=== PATIENT | male | born 1975 | race Caucasian/White ===

== ENCOUNTER 2022-04-03 17:06 | Inpatient (IN) | payer OTHER ==
[2022-04-03 21:18] VITALS: BMI 52.4
[2022-04-03] MEDS ORDERED: Bisacodyl 5 MG TAB PO PRN (23:33)
[2022-04-03] MEDS ORDERED: Guaifenesin DM 100-10/5 ML UDCUP PO PRN (23:33)
[2022-04-03] MEDS ORDERED: Bisacodyl 10 MG SUPP PR PRN (23:33)
[2022-04-03] MEDS ORDERED: Senokot S 8.6-50 MG TAB PO PRN (23:33)
[2022-04-04] MEDS ORDERED: Acetaminophen 325 MG TAB PO PRN (07:31)
[2022-04-04] MEDS: Thiamine 100 MG TAB PO SCH (07:55)
[2022-04-04] MEDS: Rifaximin 550 MG TAB PO SCH ×2 (07:55→20:16)
[2022-04-04] MEDS: Folic Acid 1 MG TAB PO SCH (07:56)
[2022-04-04] MEDS: Spironolactone 100 MG TAB PO SCH (07:56)
[2022-04-04] MEDS: Multivit, Therapeutic 1 TAB PO SCH (07:57)
[2022-04-04] MEDS: Aripiprazole 10 MG TAB PO SCH (07:57)
[2022-04-04 08:33] LABS: #Basophils 0.1 thou/uL (0.0-0.2); #Eosinphils 0.2 thou/uL (0.0-0.7); #Lymphocytes 0.7 thou/uL (1.20-3.40); #Monocytes 0.8 thou/uL (0.11-0.59); #Neutrophils 3.8 thou/uL (1.40-6.50); %Basophils 1.1 % (0.0-1.0); %Eosinophils 4.4 % (0.0-10.0); %Lymphocytes 11.9 % (21.0-51.0); %Monocytes 13.9 % (0.0-10.0); %Neutrophils 68.8 % (42.0-75.0); Mean Corpuscular HGB CONC 31.4 g/dL (32.0-36.0); Mean Corpuscular Hemoglobin 26.2 pg (27.0-31.0); Mean Corpuscular Volume 83.6 fl (78.0-98.0); Mean Platelet Volume 7.6 fL (7.4-10.4); Platelet Count 270 10x3/uL (130-400); RBC Distribution Width 16.2 % (11.5-14.5); Red Blood Cell (RBC) Count 4.59 mill/uL (4.70-6.10); White Blood Cell (WBC) Count 5.5 10x3/uL (4.8-10.8)
[2022-04-04 08:45] LABS: INR-International Normal Ratio 1.1; Prothrombin Time 14.8 sec (12.0-14.7)
[2022-04-04 08:55] LABS: ALT (SGPT) 28 U/L (8-55); AST (SGOT) 42 U/L (5-34); Albumin 3.5 g/dL (3.5-5.0); Alkaline Phosphatase 100 U/L (40-110); Anion Gap 13 mmol/L (10-20); BUN (Urea Nitrogen) 22 mg/dL (8.9-20.6); Bilirubin, Total 0.7 mg/dL (0.2-1.2); Calc. Creatinine Clearance 159 mL/min (70-130); Calcium 8.5 mg/dL (7.8-10.44); Carbon Dioxide 24 mmol/L (22-29); Chloride 105 mmol/L (98-107); Estimated GFR 69; Globulin 3.3 g/dL (2.4-3.5); Glucose 125 mg/dL (70-105); Potassium 4.6 mmol/L (3.5-5.1); Protein, Total 6.8 g/dL (6.0-8.3); Sodium 137 mmol/L (136-145)
[2022-04-04] MEDS: Morphine 4 MG/ML VIAL SLOW IVP PRN ×2 (10:46→20:15)
[2022-04-04] MEDS: Bumetanide 1 MG TAB PO SCH ×2 (11:50→17:14)
[2022-04-04] MEDS ORDERED: Albuterol Sulfate 2.5 mg/3 ml Neb NEB PRN (17:06)
[2022-04-04] MEDS: rOPINIRole HCl 1 MG TAB PO SCH (20:16)
[2022-04-05] MEDS: Morphine 4 MG/ML VIAL SLOW IVP PRN ×4 (00:11→20:09)
[2022-04-05 07:48] LABS: Phosphorus 4.4 mg/dL (2.3-4.7)
[2022-04-05 07:52] LABS: ALT (SGPT) 21 U/L (8-55); AST (SGOT) 29 U/L (5-34); Albumin 3.1 g/dL (3.5-5.0); Alkaline Phosphatase 92 U/L (40-110); Anion Gap 9 mmol/L (10-20); BUN (Urea Nitrogen) 20 mg/dL (8.9-20.6); Bilirubin, Direct 0.3 mg/dL (0.1-0.3); Bilirubin, Total 0.7 mg/dL (0.2-1.2); Calc. Creatinine Clearance 186 mL/min (70-130); Calcium 8.1 mg/dL (7.8-10.44); Carbon Dioxide 27 mmol/L (22-29); Chloride 102 mmol/L (98-107); Estimated GFR 83; Glucose 93 mg/dL (70-105); Magnesium 1.9 mg/dL (1.6-2.6); Potassium 3.8 mmol/L (3.5-5.1); Sodium 134 mmol/L (136-145)
[2022-04-05] MEDS ORDERED: Lidocaine 2% PF 5 ML VIAL ONE (08:41)
[2022-04-05] MEDS ORDERED: Sodium Bicarbonate 2.5 MEQ/5 ML VIAL ONE (08:41)
[2022-04-05] MEDS: Spironolactone 100 MG TAB PO SCH (10:19)
[2022-04-05] MEDS: Thiamine 100 MG TAB PO SCH (10:20)
[2022-04-05] MEDS: Folic Acid 1 MG TAB PO SCH (10:21)
[2022-04-05] MEDS: Multivit, Therapeutic 1 TAB PO SCH (10:21)
[2022-04-05] MEDS: Aripiprazole 10 MG TAB PO SCH (10:21)
[2022-04-05] MEDS: Rifaximin 550 MG TAB PO SCH ×2 (10:21→20:11)
[2022-04-05 11:16] LABS: BF Color Yellow; Body Fluid Source Paracentesis Fluid; Clarity Hazy (Clear); Tube # EDTA
[2022-04-05 11:29] LABS: RBC Count-Automated (BF) 1101 /cu.mm; WBC/Nucleated-Auto (BF) 270 /cu.mm
[2022-04-05 12:28] LABS: BF Segmented Neutrophils 4 %; Cell Count Non Hematic 61 %; Lymphocytes 35 %
[2022-04-05] MEDS ORDERED: Bumetanide 1 MG/4 ML VIAL IVP SCH (12:30)
[2022-04-05] MEDS: rOPINIRole HCl 1 MG TAB PO SCH (20:11)
[2022-04-05] MEDS: Enoxaparin Sodium 40 MG/0.4 ML SYRINGE SC SCH (20:11)
[2022-04-06] MEDS: Morphine 4 MG/ML VIAL SLOW IVP PRN ×4 (00:22→21:22)
[2022-04-06] MEDS: Bumetanide 1 MG/4 ML VIAL IVP SCH ×2 (05:26→14:22)
[2022-04-06 07:20] LABS: Anion Gap 10 mmol/L (10-20); BUN (Urea Nitrogen) 18 mg/dL (8.9-20.6); Calc. Creatinine Clearance 199 mL/min (70-130); Calcium 8.3 mg/dL (7.8-10.44); Carbon Dioxide 25 mmol/L (22-29); Chloride 104 mmol/L (98-107); Estimated GFR 90; Glucose 101 mg/dL (70-105); Iron 34 ug/dL (65-175); Iron Binding Capacity, Total 300 mcg/dL (261-462); Potassium 4.3 mmol/L (3.5-5.1); Sodium 135 mmol/L (136-145)
[2022-04-06 07:26] LABS: Hemoglobin 11.3 g/dL (14.0-18.0); Mean Corpuscular HGB CONC 32.8 g/dL (32.0-36.0); Mean Corpuscular Volume 82.3 fl (78.0-98.0); Mean Platelet Volume 8.1 fL (7.4-10.4); Platelet Count 221 10x3/uL (130-400); RBC Distribution Width 16.5 % (11.5-14.5); Red Blood Cell (RBC) Count 4.17 mill/uL (4.70-6.10); White Blood Cell (WBC) Count 4.3 10x3/uL (4.8-10.8)
[2022-04-06 07:32] LABS: Ferritin 44.98 ng/mL (22-322)
[2022-04-06 07:47] LABS: HBCM Index 0.06 S/CO (0-0.79); HBSAg Index 0.33 S/CO (0-0.99); Hep A IgM AB Non-Reactive (NonReactive); Hep A IgM S/CO 0.23 S/CO (0-0.79); Hep B Surf Ag Non-Reactive S/CO (NonReactive); Hepatitis B Core IgM Abs Non-Reactive (NonReactive)
[2022-04-06 08:30] LABS: Hep C IgG Ab Reflex HepC Qnt (NonReactive); Hep C Index 3.03 S/CO (0-0.79)
[2022-04-06] MEDS ORDERED: FLU VACC QS2022-23(6MOS UP)/PF 60 MCG/0.5 ML SYRINGE IM ONE (09:00)
[2022-04-06] MEDS: Rifaximin 550 MG TAB PO SCH ×2 (09:16→21:29)
[2022-04-06] MEDS: Thiamine 100 MG TAB PO SCH (09:16)
[2022-04-06] MEDS: Folic Acid 1 MG TAB PO SCH (09:16)
[2022-04-06] MEDS: Aripiprazole 10 MG TAB PO SCH (09:16)
[2022-04-06] MEDS: Multivit, Therapeutic 1 TAB PO SCH (09:16)
[2022-04-06 09:20] LABS: Band 3 % (5-11); Eosinophils 9 % (0-10); Lymphocytes 19 % (21-51); MDiff Complete? YES; Monocytes 15 % (0-10); Neutrophil 53 % (42-75); Platelet Morphology Comment Appears Adequate; RBC Morphology Normal
[2022-04-06] MEDS: Spironolactone 100 MG TAB PO SCH (09:20)
[2022-04-06] MEDS: Enoxaparin Sodium 40 MG/0.4 ML SYRINGE SC SCH (21:29)
[2022-04-06] MEDS: rOPINIRole HCl 1 MG TAB PO SCH (21:29)
[2022-04-07] MEDS: Morphine 4 MG/ML VIAL SLOW IVP PRN ×2 (00:58→04:58)
[2022-04-07] MEDS: Bumetanide 1 MG/4 ML VIAL IVP SCH (04:58)
[2022-04-07 08:07] VITALS: BP 123/69; TEMP 97.9
[2022-04-07] MEDS ORDERED: Ciprofloxacin 500 MG TAB PO SCH (08:30)
[2022-04-07] MEDS ORDERED: Spironolactone 100 MG TAB PO SCH (08:45)
[2022-04-07] MEDS: Multivit, Therapeutic 1 TAB PO SCH (09:02)
[2022-04-07] MEDS: Folic Acid 1 MG TAB PO SCH (09:03)
[2022-04-07] MEDS: Aripiprazole 10 MG TAB PO SCH (09:03)
[2022-04-07] MEDS: Rifaximin 550 MG TAB PO SCH (09:03)
[2022-04-07] MEDS: Thiamine 100 MG TAB PO SCH (09:03)
[2022-04-07] MEDS: Bumetanide 1 MG TAB PO SCH (09:03)
[2022-04-07 17:47] LABS: ANA Symphony (Qualitative) Negative (Negative); ANA Symphony (Quantitative) 0.3 Ratio (< 0.7 Negative); EliA Vaculitis New Method **** NEW METHOD ****; dsDNA IgG Antibody 1.5 IU/mL (<10 Negative)
[2022-04-08] MEDS ORDERED: Ciprofloxacin 500 MG TAB PO SCH (06:00)
[2022-04-08] MEDS ORDERED: Spironolactone 100 MG TAB PO SCH (08:00)
[2022-04-08] MEDS ORDERED: Bumetanide 1 MG TAB PO SCH (09:00)
[2022-04-08 12:10] LABS: Smooth Muscle Total ABS 13 Units (0-19)
[2022-04-08 17:13] LABS: Hep C PCR-Quant HCV Not Detected IU/mL (.)
== END 2022-04-07 12:59 | disposition home or self-care (01) | DRG 433 ==
LOC: T4-A 17:06 → OBSVTOIN 17:06
PROVIDERS: ADMIT Internal Medicine; ATTEND Internal Medicine
PROC: 0W9G3ZZ Drainage of Peritoneal Cavity, Percutaneous Approach (ICD-10-PCS; principal; 2022-04-05)
DX: K70.31 Alcoholic cirrhosis of liver with ascites (principal); N17.9 Acute kidney failure, unspecified; Z68.43 Body mass index [BMI] 50.0-59.9, adult; B18.2 Chronic viral hepatitis C; Z20.822 Contact with and (suspected) exposure to COVID-19; G25.81 Restless legs syndrome; G47.33 Obstructive sleep apnea (adult) (pediatric); F25.0 Schizoaffective disorder, bipolar type; K76.82 Hepatic encephalopathy; F10.20 Alcohol dependence, uncomplicated; Z79.899 Other long term (current) drug therapy; Z90.49 Acquired absence of other specified parts of digestive tract
CPT/HCPCS: 36415; 49083; 76705; 80048; 80053; 80074; 80076; 82042; 82105; 82390; 82728; 83516; 83540; 83550; 83735; 84100; 84157; 85025; 85060; 85610; 86015; 86038; 86225; 87070; 87205; 87522; 88112; 88305; 89051; 94640; J1650; J2001; J2270; J3490; J7620

== ENCOUNTER 2022-04-27 18:36 | Inpatient (IN) | payer OTHER ==
[~2022-04-27 18:36] MED LIST: Iopamidol-370 76% 500 ML 1 ML ONE
[2022-04-27] MEDS ORDERED: cefTRIAXone\\ROCEPHIN 2 GM VIAL ONE (19:16)
[2022-04-27 19:20] LABS: #Basophils 0.1 thou/uL (0.0-0.2); #Eosinphils 0.1 thou/uL (0.0-0.7); #Lymphocytes 1.1 thou/uL (1.20-3.40); #Monocytes 0.9 thou/uL (0.11-0.59); %Basophils 0.9 % (0.0-1.0); %Eosinophils 0.7 % (0.0-10.0); %Lymphocytes 12.4 % (21.0-51.0); %Monocytes 9.3 % (0.0-10.0); %Neutrophils 76.7 % (42.0-75.0); Hemoglobin 14.3 g/dL (14.0-18.0); Mean Corpuscular HGB CONC 32.3 g/dL (32.0-36.0); Mean Corpuscular Hemoglobin 26.7 pg (27.0-31.0); Mean Corpuscular Volume 82.6 fl (78.0-98.0); Mean Platelet Volume 8.1 fL (7.4-10.4); Platelet Count 272 10x3/uL (130-400); RBC Distribution Width 16.1 % (11.5-14.5); Red Blood Cell (RBC) Count 5.37 mill/uL (4.70-6.10); White Blood Cell (WBC) Count 9.2 10x3/uL (4.8-10.8)
[2022-04-27 19:33] LABS: INR-International Normal Ratio 1.1; PTT 28.5 sec (22.9-36.1); Prothrombin Time 14.9 sec (12.0-14.7)
[2022-04-27 19:45] LABS: ALT (SGPT) 27 U/L (8-55); AST (SGOT) 38 U/L (5-34); Albumin 3.9 g/dL (3.5-5.0); Alkaline Phosphatase 105 U/L (40-110); Anion Gap 18 mmol/L (10-20); BUN (Urea Nitrogen) 18 mg/dL (8.9-20.6); Bilirubin, Total 0.4 mg/dL (0.2-1.2); Calc. Creatinine Clearance 0 mL/min (70-130); Calcium 8.5 mg/dL (7.8-10.44); Carbon Dioxide 16 mmol/L (22-29); Chloride 109 mmol/L (98-107); Estimated GFR 91; Globulin 3.8 g/dL (2.4-3.5); Glucose 118 mg/dL (70-105); Lipase 40 U/L (8-78); Magnesium 2.3 mg/dL (1.6-2.6); Potassium 4.4 mmol/L (3.5-5.1); Protein, Total 7.7 g/dL (6.0-8.3); Sodium 139 mmol/L (136-145)
[2022-04-27] MEDS ORDERED: Morphine 4 MG/ML VIAL ONE ×2 (19:45→22:20)
[2022-04-27 19:55] LABS: Acetaminophen Less than 10.0 mcg/mL (10.0-30.0); Alcohol 350 mg/dL (Less than 10); Salicylate Less than 8.0 mg/dL (15.0-30.0)
[2022-04-27 21:35] LABS: SARS-CoV-2 NAA Rapid Test Not Detected (NotDetected)
[2022-04-27] MEDS ORDERED: Ondansetron ODT 4 MG TAB PO PRN ×2 (21:56)
[2022-04-27] MEDS ORDERED: Lorazepam 2 MG/ML VIAL IM PRN (21:56)
[2022-04-27] MEDS ORDERED: Ondansetron PF 4 MG/2 ML Vial IVP PRN (21:56)
[2022-04-27] MEDS ORDERED: Thiamine HCl 200 MG/2 ML VIAL SLOW IVP SCH (22:00)
[2022-04-27] MEDS ORDERED: Electrolyte Replacement Protocol 1 EACH FS SCH (22:00)
[2022-04-27] MEDS ORDERED: Sodium Bicarb 50 MEQ/50 ML Abboject 8.4% SYRINGE IVP SCH (22:30)
[2022-04-27 22:44] LABS: Lactic Acid 2.1 mmol/L (0.5-2.2)
[2022-04-27 22:56] LABS: Bacteria/HPF None Seen HPF (None Seen); Bilirubin Negative (Negative); Blood, Urine Negative (Negative); Clarity Clear (Clear); Glucose, Urine (Dipstick) Normal (Negative); Ketone, Urine Negative (Negative); Leukocyte Negative Leu/uL (Negative); Nitrite Negative (Negative); Protein, Urine (Dipstick) 30 mg/dL (Neg-Trace); RBC/HPF 0-3 HPF (0-3); Squamous Epithelial None Seen HPF (0-3); Urobilinogen Normal mg/dL (Less than 2); WBC/HPF 0-3 HPF (0-3); pH, Urine 5.5 (5.0-9.0)
[2022-04-27 22:57] LABS: Specific Gravity, Urine 1.049 (1.002-1.036)
[2022-04-27 23:00] LABS: Amphetamine Not Detected (NotDetected); Barbiturates Screen Not Detected (NotDetected); Benzodiazepine Screen Not Detected (NotDetected); Cocaine Metabolite Screen Not Detected (NotDetected); Methadone Not Detected (NotDetected); Methamphetamine Not Detected (NotDetected); Opiate Screen Detected (NotDetected); Oxycodone Screen Not Detected (NotDetected); Phencyclidine (PCP) Not Detected (NotDetected); THC/Cannabinoid Screen Not Detected (NotDetected); Tricyclic Screen Not Detected (NotDetected)
[2022-04-27] MEDS ORDERED: Sodium Bicarb 50 MEQ/50 ML VIAL ONE (23:43)
[2022-04-28] MEDS ORDERED: Albuterol Sulfate 2.5 mg/0.5 ml Neb ONE (01:54)
[2022-04-28] MEDS ORDERED: Ipratropium Bromide 2.5 ml Neb ONE (01:54)
[2022-04-28] MEDS ORDERED: Furosemide 40 MG/4 ML VIAL SLOW IVP SCH ×2 (03:15→09:00)
[2022-04-28] MEDS ORDERED: Metoprolol Tartrate 5 MG/5 ML VIAL IVP SCH (03:30)
[2022-04-28] MEDS ORDERED: Morphine 4 MG/ML VIAL SLOW IVP SCH (03:45)
[2022-04-28] MEDS ORDERED: Morphine 4 MG/ML VIAL ONE (04:07)
[2022-04-28] MEDS ORDERED: Furosemide 40 MG/4 ML VIAL ONE (04:34)
[2022-04-28 05:06] LABS: #Basophils 0.1 thou/uL (0.0-0.2); #Eosinphils 0.1 thou/uL (0.0-0.7); #Lymphocytes 0.8 thou/uL (1.20-3.40); #Monocytes 1.6 thou/uL (0.11-0.59); #Neutrophils 11.5 thou/uL (1.40-6.50); %Basophils 0.7 % (0.0-1.0); %Eosinophils 0.7 % (0.0-10.0); %Lymphocytes 5.9 % (21.0-51.0); %Monocytes 11.5 % (0.0-10.0); %Neutrophils 81.2 % (42.0-75.0); Hemoglobin 12.7 g/dL (14.0-18.0); Mean Corpuscular HGB CONC 32.5 g/dL (32.0-36.0); Mean Corpuscular Hemoglobin 26.6 pg (27.0-31.0); Mean Platelet Volume 7.9 fL (7.4-10.4); Platelet Count 315 10x3/uL (130-400); RBC Distribution Width 16.2 % (11.5-14.5); Red Blood Cell (RBC) Count 4.79 mill/uL (4.70-6.10); White Blood Cell (WBC) Count 14.2 10x3/uL (4.8-10.8)
[2022-04-28 06:55] LABS: Calcium 8.2 mg/dL (7.8-10.44); Chloride 106 mmol/L (98-107); Potassium 4.5 mmol/L (3.5-5.1); Sodium 138 mmol/L (136-145)
[2022-04-28 06:56] LABS: Glucose 121 mg/dL (70-105)
[2022-04-28 06:57] LABS: Carbon Dioxide 18 mmol/L (22-29)
[2022-04-28 06:58] LABS: Anion Gap 19 mmol/L (10-20)
[2022-04-28 06:59] LABS: Calc. Creatinine Clearance 173 mL/min (70-130); Estimated GFR 75
[2022-04-28 07:00] LABS: BUN (Urea Nitrogen) 21 mg/dL (8.9-20.6)
[2022-04-28] MEDS: Enoxaparin Sodium 40 MG/0.4 ML SYRINGE SC SCH (07:47)
[2022-04-28] MEDS: Thiamine 100 MG TAB PO SCH (07:49)
[2022-04-28] MEDS: Multivit, Therapeutic 1 TAB PO SCH (07:49)
[2022-04-28] MEDS: Folic Acid 1 MG TAB PO SCH (07:50)
[2022-04-28] MEDS: Lorazepam 1 MG TAB PO PRN ×3 (08:26→20:22)
[2022-04-28] MEDS ORDERED: Multivit, Therapeutic 1 TAB PO SCH (09:00)
[2022-04-28] MEDS ORDERED: Folic Acid 1 MG TAB PO SCH (09:00)
[2022-04-28] MEDS: HYDROcodone/Acetaminophen 10/325 mg Tablet PO PRN ×2 (10:51→22:02)
[2022-04-28] MEDS ORDERED: Lidocaine 1% PF 5 ML VIAL ONE (12:31)
[2022-04-28] MEDS ORDERED: Sodium Bicarbonate 2.5 MEQ/5 ML VIAL ONE (12:31)
[2022-04-28 15:48] LABS: RBC Count-Automated (BF) 1784 /cu.mm; WBC/Nucleated-Auto (BF) 307 /cu.mm
[2022-04-28] MEDS: Bumetanide 1 MG TAB PO SCH (16:04)
[2022-04-28 16:08] LABS: Fluid, Protein 4.2 g/dL (Not Available)
[2022-04-28 16:12] LABS: BF Color Yellow; Body Fluid Source Ascites Body Fluid; Clarity Hazy (Clear); Tube # EDTA
[2022-04-28 16:21] LABS: BF Segmented Neutrophils 6 %; Cell Count Non Hematic 57 %; Lymphocytes 37 %
[2022-04-28] MEDS ORDERED: cefTRIAXone\\ROCEPHIN 1 GM in Sodium Chloride 0.9% 100 ML IVPB SCH (20:00)
[2022-04-28] MEDS: rOPINIRole HCl 0.25 MG TAB PO SCH (20:21)
[2022-04-28] MEDS ORDERED: Lorazepam 1 MG TAB PO PRN (21:56)
[2022-04-28] MEDS: Acetaminophen 325 MG TAB PO PRN (23:58)
[2022-04-29 06:42] LABS: Hemoglobin 10.3 g/dL (14.0-18.0); Mean Corpuscular HGB CONC 32.6 g/dL (32.0-36.0); Mean Corpuscular Hemoglobin 26.7 pg (27.0-31.0); Mean Corpuscular Volume 81.9 fl (78.0-98.0); Mean Platelet Volume 7.8 fL (7.4-10.4); Platelet Count 148 10x3/uL (130-400); RBC Distribution Width 15.5 % (11.5-14.5); Red Blood Cell (RBC) Count 3.86 mill/uL (4.70-6.10); White Blood Cell (WBC) Count 4.7 10x3/uL (4.8-10.8)
[2022-04-29 06:52] LABS: Anion Gap 12 mmol/L (10-20); BUN (Urea Nitrogen) 18 mg/dL (8.9-20.6); Calc. Creatinine Clearance 222 mL/min (70-130); Calcium 8.3 mg/dL (7.8-10.44); Carbon Dioxide 28 mmol/L (22-29); Chloride 100 mmol/L (98-107); Estimated GFR 105; Glucose 104 mg/dL (70-105); Potassium 3.5 mmol/L (3.5-5.1); Sodium 136 mmol/L (136-145)
[2022-04-29] MEDS: Enoxaparin Sodium 40 MG/0.4 ML SYRINGE SC SCH (08:08)
[2022-04-29] MEDS: Aripiprazole 10 MG TAB PO SCH (08:08)
[2022-04-29] MEDS: Bumetanide 1 MG TAB PO SCH ×2 (08:09→15:20)
[2022-04-29] MEDS: Rifaximin 550 MG TAB PO SCH (08:09)
[2022-04-29] MEDS: Thiamine 100 MG TAB PO SCH (08:09)
[2022-04-29] MEDS: Spironolactone 100 MG TAB PO SCH (08:10)
[2022-04-29] MEDS: Multivit, Therapeutic 1 TAB PO SCH (08:10)
[2022-04-29] MEDS: Folic Acid 1 MG TAB PO SCH (08:10)
[2022-04-29] MEDS: HYDROcodone/Acetaminophen 10/325 mg Tablet PO PRN ×3 (08:17→22:05)
[2022-04-29] MEDS ORDERED: Potassium Chloride 20 MEQ TAB PO SCH (09:15)
[2022-04-29 09:28] LABS: Band 5 % (5-11); Eosinophils 2 % (0-10); Lymphocytes 9 % (21-51); MDiff Complete? YES; Monocytes 16 % (0-10); Neutrophil 67 % (42-75); Platelet Morphology Comment Appears Adequate; RBC Morphology Normal
[2022-04-29 14:17] VITALS: BMI 51.3
[2022-04-29] MEDS: Acetaminophen 325 MG TAB PO PRN (20:31)
[2022-04-29] MEDS: rOPINIRole HCl 0.25 MG TAB PO SCH (20:33)
[2022-04-29] MEDS ORDERED: Lorazepam 1 MG TAB PO PRN (21:56)
[2022-04-30] MEDS ORDERED: Ketorolac Tromethamine 30 MG/ML VIAL IVP SCH (01:00)
[2022-04-30] MEDS ORDERED: Ibuprofen 200 MG TAB PO PRN (01:04)
[2022-04-30] MEDS ORDERED: Melatonin 3 MG TAB PO PRN (02:57)
[2022-04-30] MEDS ORDERED: HYDROcodone/Acetaminophen 5/325 mg Tablet PO SCH (03:00)
[2022-04-30] MEDS: HYDROcodone/Acetaminophen 10/325 mg Tablet PO PRN (05:24)
[2022-04-30 05:25] LABS: Hemoglobin 11.1 g/dL (14.0-18.0); Mean Corpuscular HGB CONC 32.5 g/dL (32.0-36.0); Mean Corpuscular Hemoglobin 26.6 pg (27.0-31.0); Mean Corpuscular Volume 82.1 fl (78.0-98.0); Platelet Count 174 10x3/uL (130-400); RBC Distribution Width 15.7 % (11.5-14.5); Red Blood Cell (RBC) Count 4.15 mill/uL (4.70-6.10); White Blood Cell (WBC) Count 6.1 10x3/uL (4.8-10.8)
[2022-04-30 05:49] LABS: Anion Gap 13 mmol/L (10-20); BUN (Urea Nitrogen) 15 mg/dL (8.9-20.6); Calc. Creatinine Clearance 204 mL/min (70-130); Calcium 8.5 mg/dL (7.8-10.44); Carbon Dioxide 26 mmol/L (22-29); Chloride 98 mmol/L (98-107); Estimated GFR 98; Glucose 100 mg/dL (70-105); Potassium 3.4 mmol/L (3.5-5.1); Sodium 134 mmol/L (136-145)
[2022-04-30 06:01] LABS: Anisocytosis SLIGHT = 6-15 cells (100X) (0-5/hpf); Eosinophils 3 % (0-10); Lymphocytes 6 % (21-51); MDiff Complete? YES; Monocytes 11 % (0-10); Neutrophil 78 % (42-75); Platelet Morphology Comment Appears Adequate; Reactive Lymphocytes 1 % (0-10)
[2022-04-30] MEDS: Enoxaparin Sodium 40 MG/0.4 ML SYRINGE SC SCH (08:08)
[2022-04-30] MEDS: Aripiprazole 10 MG TAB PO SCH (08:09)
[2022-04-30] MEDS: Rifaximin 550 MG TAB PO SCH (08:09)
[2022-04-30] MEDS: Bumetanide 1 MG TAB PO SCH ×2 (08:09→18:02)
[2022-04-30] MEDS: Thiamine 100 MG TAB PO SCH (08:10)
[2022-04-30] MEDS: Folic Acid 1 MG TAB PO SCH (08:11)
[2022-04-30] MEDS: Multivit, Therapeutic 1 TAB PO SCH (08:11)
[2022-04-30] MEDS: Spironolactone 100 MG TAB PO SCH (08:11)
[2022-04-30] MEDS ORDERED: Potassium Chloride 20 MEQ TAB PO SCH (10:15)
[2022-04-30 16:03] VITALS: BP 120/50; TEMP 98.6
[2022-04-30] MEDS ORDERED: Lorazepam 0.5 MG TAB PO PRN (21:56)
[2022-04-30] MEDS ORDERED: Thiamine 100 MG TAB PO SCH (22:00)
== END 2022-04-30 17:55 | disposition home or self-care (01) | DRG 442 ==
LOC: ERS 18:36 → ERHOLD 22:00 → NEURO 04-28 07:08 → OBSVTOIN 04-28 14:00
PROVIDERS: ADMIT Internal Medicine; ATTEND Emergency Medicine
PROC: 0W9G3ZZ Drainage of Peritoneal Cavity, Percutaneous Approach (ICD-10-PCS; principal; 2022-04-28)
DX: K76.82 Hepatic encephalopathy (principal); R45.851 Suicidal ideations; Z68.43 Body mass index [BMI] 50.0-59.9, adult; Z20.822 Contact with and (suspected) exposure to COVID-19; B18.2 Chronic viral hepatitis C; G25.81 Restless legs syndrome; F17.210 Nicotine dependence, cigarettes, uncomplicated; F10.229 Alcohol dependence with intoxication, unspecified; Y90.8 Blood alcohol level of 240 mg/100 ml or more; E66.01 Morbid (severe) obesity due to excess calories; G47.00 Insomnia, unspecified; K70.31 Alcoholic cirrhosis of liver with ascites; Z88.8 Allergy status to other drugs, medicaments and biological substances; Z79.899 Other long term (current) drug therapy; Z90.49 Acquired absence of other specified parts of digestive tract
CPT/HCPCS: 36415; 49083; 70450; 71045; 74177; 80048; 80053; 80306; 80307; 81003; 81015; 82042; 82140; 82945; 83605; 83615; 83690; 83735; 83880; 84157; 84443; 84484; 85025; 85060; 85610; 85730; 87040; 87070; 87086; 87205; 89051; 93005; 94640; 96372; 96374; 96375; 96376; G0378; J0696; J1650; J1940; J2270; J3490; J7611; J7620; Q9967

== ENCOUNTER 2022-05-17 03:45 | Emergency (ER) | payer MEDICARE, OTHER ==
[2022-05-17 04:47] LABS: Hemoglobin 10.2 g/dL (14.0-18.0); Mean Corpuscular HGB CONC 31.9 g/dL (32.0-36.0); Mean Corpuscular Hemoglobin 26.5 pg (27.0-31.0); Mean Corpuscular Volume 83.3 fl (78.0-98.0); Mean Platelet Volume 7.8 fL (7.4-10.4); Platelet Count 198 10x3/uL (130-400); RBC Distribution Width 16.2 % (11.5-14.5); Red Blood Cell (RBC) Count 3.86 mill/uL (4.70-6.10); White Blood Cell (WBC) Count 4.3 10x3/uL (4.8-10.8)
[2022-05-17 04:52] LABS: INR-International Normal Ratio 1.1
[2022-05-17 04:53] LABS: PTT 28.5 sec (22.9-36.1)
[2022-05-17 05:03] LABS: ALT (SGPT) 13 U/L (8-55); AST (SGOT) 33 U/L (5-34); Alkaline Phosphatase 91 U/L (40-110); Anion Gap 9 mmol/L (10-20); BUN (Urea Nitrogen) 12 mg/dL (8.9-20.6); Bilirubin, Total 0.3 mg/dL (0.2-1.2); Calc. Creatinine Clearance 0 mL/min (70-130); Calcium 8.1 mg/dL (7.8-10.44); Carbon Dioxide 29 mmol/L (22-29); Chloride 108 mmol/L (98-107); Estimated GFR 76; Globulin 2.5 g/dL (2.4-3.5); Glucose 89 mg/dL (70-105); Lipase 32 U/L (8-78); Potassium 4.2 mmol/L (3.5-5.1); Protein, Total 5.5 g/dL (6.0-8.3); Sodium 142 mmol/L (136-145)
[2022-05-17 05:28] LABS: Anisocytosis SLIGHT = 6-15 cells (100X) (0-5/hpf); Band 1 % (5-11); Eosinophils 5 % (0-10); Hypochromia SLIGHT = 6-15 cells (100X) (0-5/hpf); Lymphocytes 20 % (21-51); MDiff Complete? YES; Monocytes 14 % (0-10); Neutrophil 58 % (42-75); Platelet Morphology Comment Appears Adequate; Polychromasia SLIGHT = 2-3 cells (100X) (0-2/hpf); Reactive Lymphocytes 1 % (0-10)
[2022-05-17] MEDS ORDERED: Morphine 4 MG/ML VIAL ONE (05:29)
[2022-05-17] MEDS ORDERED: Lidocaine 1% w/Epinephrine 1:100K 20 ML VIAL ONE (06:14)
[2022-05-17 07:31] LABS: BF Color Yellow; Body Fluid Source Ascites Body Fluid; Clarity Hazy (Clear)
[2022-05-17 08:09] LABS: RBC Count-Automated (BF) 2092 /cu.mm; WBC/Nucleated-Auto (BF) 201 /cu.mm
[2022-05-17 10:07] LABS: BF Segmented Neutrophils 0 %; Cell Count Non Hematic 79 %; Lymphocytes 21 %
== END 2022-05-17 07:03 | disposition home or self-care (01) ==
LOC: ERS 03:45
DX: R18.8 Other ascites (principal); E66.9 Obesity, unspecified
CPT/HCPCS: 36415; 49083; 71045; 80053; 83690; 85025; 85060; 85610; 85730; 89051; 93005; 96374; J2270

== ENCOUNTER → 2022-05-19 | Day surgery (SDC) | payer OTHER ==
[~2022-05-19] MED LIST changes: +Albumin 25% 200 ML ONE; +FLU VACC QS2022-23(6MOS UP)/PF 60 MCG/0.5 ML SYRINGE IM ONE; -Iopamidol-370 76% 500 ML 1 ML ONE; +Lidocaine 1% PF 5 ML VIAL ONE; +Sodium Bicarbonate 2.5 MEQ/5 ML VIAL ONE
[2022-05-19 11:42] VITALS: BP 139/92; TEMP 97.7
== END | disposition home or self-care (01) ==
LOC: ULT 09:02
PROVIDERS: ATTEND Internal Medicine
PROC: 0W9G3ZZ Drainage of Peritoneal Cavity, Percutaneous Approach (ICD-10-PCS; principal; 2022-05-19)
DX: K70.31 Alcoholic cirrhosis of liver with ascites (principal); F10.11 Alcohol abuse, in remission; K76.82 Hepatic encephalopathy; K21.9 Gastro-esophageal reflux disease without esophagitis; E66.9 Obesity, unspecified; Z68.43 Body mass index [BMI] 50.0-59.9, adult; Z79.899 Other long term (current) drug therapy; Z88.6 Allergy status to analgesic agent
CPT/HCPCS: 49083; P9047

== ENCOUNTER 2022-08-15 01:13 | Emergency (ER) | payer OTHER ==
[2022-08-15] MEDS ORDERED: Thiamine HCl 100 MG, Folic Acid 1 MG in Dextrose 5 %-0.45 % NaCl 1,000 ML IVPB SCH (02:00)
[2022-08-15 02:16] LABS: Hemoglobin 12.4 g/dL (14.0-18.0); Mean Corpuscular HGB CONC 34.7 g/dL (32.0-36.0); Mean Corpuscular Hemoglobin 27.9 pg (27.0-31.0); Mean Corpuscular Volume 80.4 fl (78.0-98.0); Mean Platelet Volume 7.9 fL (7.4-10.4); Platelet Count 304 10x3/uL (130-400); RBC Distribution Width 16.4 % (11.5-14.5); Red Blood Cell (RBC) Count 4.44 mill/uL (4.70-6.10); White Blood Cell (WBC) Count 6.3 10x3/uL (4.8-10.8)
[2022-08-15 02:20] LABS: INR-International Normal Ratio 1.1
[2022-08-15 02:46] LABS: MDiff Complete? YES
[2022-08-15 02:47] LABS: Anisocytosis SLIGHT = 6-15 cells (100X) (0-5/hpf); Eosinophils 1 % (0-10); Lymphocytes 20 % (21-51); Monocytes 12 % (0-10); Neutrophil 65 % (42-75); Platelet Morphology Comment Appears Adequate; Polychromasia SLIGHT = 2-3 cells (100X) (0-2/hpf)
[2022-08-15 02:56] LABS: ALT (SGPT) 23 U/L (8-55); AST (SGOT) 41 U/L (5-34); Albumin 3.4 g/dL (3.5-5.0); Alkaline Phosphatase 90 U/L (40-110); Anion Gap 17 mmol/L (10-20); BUN (Urea Nitrogen) 18 mg/dL (8.9-20.6); Bilirubin, Total 0.3 mg/dL (0.2-1.2); Calc. Creatinine Clearance 0 mL/min (70-130); Calcium 8.3 mg/dL (7.8-10.44); Carbon Dioxide 18 mmol/L (22-29); Chloride 105 mmol/L (98-107); Estimated GFR 73; Globulin 3.4 g/dL (2.4-3.5); Glucose 128 mg/dL (70-105); Lipase 45 U/L (8-78); Potassium 4.1 mmol/L (3.5-5.1); Protein, Total 6.8 g/dL (6.0-8.3); Sodium 136 mmol/L (136-145)
[2022-08-15 04:14] LABS: Acetaminophen Less than 10.0 mcg/mL (10.0-30.0); Alcohol 243 mg/dL (Less than 10); Salicylate Less than 8.0 mg/dL (15.0-30.0)
[2022-08-15] MEDS ORDERED: LORazepam 2 MG/ML SYR.(CARPUJECT) ONE ×3 (04:40→09:13)
[2022-08-15 07:01] LABS: Bilirubin Negative (Negative); Blood, Urine Negative (Negative); Clarity Clear (Clear); Glucose, Urine (Dipstick) Normal (Negative); Ketone, Urine Negative (Negative); Leukocyte Negative Leu/uL (Negative); Nitrite Negative (Negative); Protein, Urine (Dipstick) Negative (Neg-Trace); Specific Gravity, Urine 1.023 (1.002-1.036); Urobilinogen Normal mg/dL (Less than 2); pH, Urine 5.5 (5.0-9.0)
[2022-08-15 07:10] LABS: Amphetamine Not Detected (NotDetected); Barbiturates Screen Not Detected (NotDetected); Cocaine Metabolite Screen Not Detected (NotDetected); Methadone Not Detected (NotDetected); Methamphetamine Not Detected (NotDetected); Opiate Screen Not Detected (NotDetected); Oxycodone Screen Not Detected (NotDetected); Phencyclidine (PCP) Not Detected (NotDetected); THC/Cannabinoid Screen Not Detected (NotDetected); Tricyclic Screen Not Detected (NotDetected)
[2022-08-15 07:29] LABS: Benzodiazepine Screen Not Detected (NotDetected)
[2022-08-15] MEDS ORDERED: Ibuprofen 200 MG TAB ONE (08:58)
== END 2022-08-15 14:46 | disposition home or self-care (01) ==
LOC: ERS 01:13
DX: F10.129 Alcohol abuse with intoxication, unspecified (principal); E66.9 Obesity, unspecified; Y90.6 Blood alcohol level of 120-199 mg/100 ml
CPT/HCPCS: 80053; 80306; 80307 ×2; 81003; 82140; 83690; 83880; 84484; 85025; 85610; 85730; 93005; J2060; 36415; 96374; 96375; 96376; J3411; J7042

== ENCOUNTER 2022-12-21 09:13 | Outpatient (CLI) | payer OTHER | END 2022-12-21 09:14 | disposition home or self-care (01) | LOC: DTY/OP 09:13 | PROVIDERS: ATTEND Family Medicine | DX: E66.01 Morbid (severe) obesity due to excess calories (principal); Z71.3 Dietary counseling and surveillance | CPT/HCPCS: 97802 ==

== ENCOUNTER 2025-01-05 18:54 | Emergency (ER) | payer MEDICARE, OTHER ==
[2025-01-05] MEDS ORDERED: Acetaminophen 500 MG TAB ONE (19:32)
== END 2025-01-05 19:49 ==
LOC: ERS 18:54
DX: R10.32 Left lower quadrant pain (principal); R10.31 Right lower quadrant pain; R35.0 Frequency of micturition
CPT/HCPCS: 99283; J3010

== ENCOUNTER 2025-03-23 04:25 | Emergency (ER) | payer OTHER ==
[2025-03-23] MEDS ORDERED: Acetaminophen 500 MG TAB ONE (04:56)
[2025-03-23 05:29] LABS: #Basophils 0.07 10x3/uL (0.0-0.2); #Eosinophils 0.28 10x3/uL (0.0-0.7); #Monocytes 0.66 10x3/uL (0.11-0.59); #Neutrophils 2.46 10x3/uL (1.40-6.50); %Basophils 1.6 % (0.0-1.0); %Eosinophils 6.5 % (0.0-10.0); %Lymphocytes 18.7 % (21.0-51.0); %Monocytes 15.4 % (0.0-10.0); %Neutrophils 57.6 % (42.0-75.0); Hematocrit 36.0 % (42.0-52.0); Hemoglobin 12.0 g/dL (14.0-18.0); Mean Corpuscular Hemoglobin 28.4 pg (27.0-31.0); Mean Corpuscular Volume 85.1 fL (78.0-98.0); Platelet Count 171 10x3/uL (130-400); Red Blood Cell (RBC) Count 4.23 mill/uL (4.70-6.10); White Blood Cell (WBC) Count 4.28 10x3/uL (4.8-10.8)
[2025-03-23 06:00] LABS: ALT (SGPT) 27 U/L (Less than 45); AST (SGOT) 44 U/L (11-34); Albumin 3.6 g/dL (3.1-4.5); Alkaline Phosphatase 99 U/L (40-110); Anion Gap 17 mmol/L (10-20); BUN (Urea Nitrogen) 20 mg/dL (8.9-20.6); Bilirubin, Total 0.5 mg/dL (0.3-1.2); Calc. Creatinine Clearance 0 mL/min (70-130); Calcium 9.4 mg/dL (7.8-10.44); Carbon Dioxide 20 mmol/L (22-29); Chloride 109 mmol/L (98-107); Globulin 3.8 g/dL (2.4-3.5); Glucose 89 mg/dL (70-105); Potassium 3.6 mmol/L (3.5-5.1); Sodium 142 mmol/L (136-145)
== END 2025-03-23 07:18 | disposition home or self-care (01) ==
LOC: ERS 04:25
DX: S60.221A Contusion of right hand, initial encounter (principal); W01.0XXA Fall on same level from slipping, tripping and stumbling without subsequent striking against object, initial encounter
CPT/HCPCS: 70450; 72125; 73130; 80053; 85025; J2270; 96372